=== PATIENT | female | born 1985 | race Caucasian/White ===

== ENCOUNTER 2016-08-22 21:35 | Emergency (ER) | payer OTHER ==
[2016-08-22 21:42] VITALS: BMI 26.4
--- NOTE | 2016-08-22 21:51 | PDOC ---
History of Present Illness - General History Source: Patient Exam Limitations: No Limitations - History of Present Illness Initial Comments: 08/23/16 00:32 The patient is a 30-year-old female with a significant past medical history of asthma, and presents to the emergency department with shortness of breath for an hour. The patient states she has back pain secondary to the strain from the difficult breathing. She also reports generalized weakness secondary to the increased work of breathing. She states that she had an episode of pneumonia last month. She expresses her concern that her shortness of breath may be related to that pneumonic episode. The patient denies chest pain, palpitations, headache and dizziness. The patient denies fever, chills, abdominal pain, nausea, vomit, diarrhea and constipation. She denies dysuria, urgency, frequency, and hematuria. Allergies: NKDA Other past medical history: personality disorder, mood disorder, anxiety, depression Social History: Current smoker <Aundrea Coles - Last Filed: 08/23/16 00:32> <Kailyn Bailey - Last Filed: 08/23/16 02:41> - General Chief Complaint: Asthma Stated Complaint: DIFFICULTY BREATHING Time Seen by Provider: 08/22/16 21:51 Past History <Aundrea Coles - Last Filed: 08/23/16 00:32> - Past Medical History Asthma: Yes Cancer: No Cardiac Disorders: No Diabetes: No HTN: No Psychiatric Problems: Yes (DEPRESSION & ANXIETY, Borderline personality disorder , mood disorder) Suicide Attempt (Hx): No Seizures: No Thyroid Disease: No - Immunization History Immunization Up to Date: Yes - Psycho/Social/Smoking Cessation Hx Anxiety: Yes (PRN MEDS) Suicidal Ideation: No Smoking Status: No Smoking History: Current some day smoker Have you smoked in the past 12 months: Yes Number of Cigarettes Smoked Daily: 20 Information on smoking cessation initiated: No 'Breaking Loose' booklet given: 05/31/15 Hx Alcohol Use: No Drug/Substance Use Hx: No Substance Use Type: None Hx Substance Use Treatment: No <Kailyn Bailey - Last Filed: 08/23/16 02:41> - Past Medical History Allergies/Adverse Reactions: Allergies Allergy/AdvReac Type Severity Reaction Status Date / Time No Known Allergies Allergy Verified 08/22/16 21:40 Home Medications: Ambulatory Orders Albuterol Sulfate Inhaler - [Ventolin Hfa Inhaler -] 1 - 2 inh PO Q4H 08/22/16 Montelukast Na [Singulair -] 10 mg PO HS #30 tablet 08/22/16 Prednisone [Deltasone -] 40 mg PO DAILY #8 tablet 08/23/16 Review of Systems - Review of Systems Able to Perform ROS?: Yes Comments:: 08/23/16 00:33 CONSTITUTIONAL: Absent: fever, chills, diaphoresis, generalized weakness, malaise, loss of appetite HEENT: Absent: rhinorrhea, nasal congestion, throat pain, throat swelling, difficulty swallowing, mouth swelling, ear pain, eye pain, visual Changes CARDIOVASCULAR: Absent: chest pain, syncope, palpitations, irregular heart rate, lightheadedness , peripheral edema RESPIRATORY: Present: (+) shortness of breath Absent: cough, dyspnea with exertion, orthopnea, wheezing, stridor, hemoptysis GASTROINTESTINAL: Absent: abdominal pain, abdominal distension, nausea, vomiting, diarrhea, constipation, melena, hematochezia GENITOURINARY: Absent: dysuria, frequency, urgency, hesitancy, hematuria, flank pain, genital pain MUSCULOSKELETAL: Present: (+) back pain Absent: arthralgia, joint swelling SKIN: Absent: rash, itching, pallor HEMATOLOGIC/IMMUNOLOGIC: Absent: easy bleeding, easy bruising, lymphadenopathy, frequent infections ENDOCRINE: Absent: unexplained weight gain, unexplained weight loss, heat intolerance, cold intolerance NEUROLOGIC: Absent: headache, focal weakness or paresthesias, dizziness, unsteady gait, seizure, mental status changes, bladder or bowel incontinence PSYCHIATRIC: Absent: anxiety, depression, suicidal or homicidal ideation, hallucinations. <Aundrea Coles - Last Filed: 08/23/16 00:32> *Physical Exam - Vital Signs Last Vital Signs Temp Pulse Resp BP Pulse Ox 99 H 22 140/90 100 08/22/16 23:55 08/22/16 23:55 08/22/16 21:36 08/22/16 23:55 - Physical Exam Comments: 08/23/16 00:33 GENERAL: Well developed, well nourished. Awake and alert. No acute distress. HEENT: Normocephalic, atraumatic. PERRLA, EOMI. No conjunctival pallor. Sclera are non- icteric. Moist mucous membranes. Oropharynx is clear. NECK: Supple. Full ROM. No JVD. Carotid pulses 2+ and symmetric, without bruits. No thyromegaly. No lymphadenopathy. CARDIOVASCULAR: Regular rate and rhythm. No murmurs, rubs, or gallops. Distal pulses are 2+ and symmetric. PULMONARY: No evidence of respiratory distress. Lungs clear to auscultation bilaterally. No wheezing, rales or rhonchi. ABDOMINAL: Soft. Non-tender. Non-distended. No rebound or guarding. No organomegaly. Normoactive bowel sounds. MUSCULOSKELETAL Normal range of motion at all joints. No bony deformities or tenderness. No CVA tenderness. EXTREMITIES: No cyanosis. No clubbing. No pitting edema. No calf tenderness. SKIN: Warm and dry. Normal capillary refill. No rashes. No jaundice. NEUROLOGICAL: Alert, awake, appropriate. Cranial nerves 2-12 intact. No deficits to light touch and temperature in face, upper extremities and lower extremities. No motor deficits in the in face, upper extremities and lower extremities. Normoreflexic in the upper and lower extremities. Normal speech. Toes are down- going bilaterally. Gait is normal without ataxia. PSYCHIATRIC: Cooperative. Good eye contact. Appropriate mood and affect. <Aundrea Coles - Last Filed: 08/23/16 00:32> - Vital Signs Last Vital Signs Temp Pulse Resp BP Pulse Ox 126 H 30 H 140/90 98 08/22/16 21:36 08/22/16 21:36 08/22/16 21:36 08/22/16 21:36 <Kailyn Bailey - Last Filed: 08/23/16 02:41> ED Treatment Course - LABORATORY CBC & Chemistry Diagram: 08/22/16 22:00 08/22/16 22:00 - ADDITIONAL ORDERS Additional order review: Laboratory Results 08/22/16 08/22/16 22:00 22:00 Sodium 143 Potassium 4.3 Chloride 110 H Carbon Dioxide 25 Anion Gap 8 BUN 6 L D Creatinine 0.6 Creat Clearance w eGFR > 60 Random Glucose 88 Calcium 8.0 L Total Bilirubin 0.3 D AST 15 D ALT 16 Alkaline Phosphatase 87 Total Protein 6.8 Albumin 3.5 Serum , Qual Negative 08/22/16 22:00 RBC 4.83 MCV 83.3 MCHC 31.4 L RDW 13.9 MPV 7.5 Neutrophils % 22.0 L D Lymphocytes % 55.0 H Monocytes % 6.0 Eosinophils % 13.0 H D Basophils % 1.0 - Medications Given in the ED: ED Medications Discontinued Medications Generic Name Dose Route Start Last Admin Trade Name Natalya PRN Reason Stop Dose Admin Acetaminophen 1,000 mg 08/22/16 22:20 08/22/16 22:22 Ofirmev Injection - IVPB 08/22/16 22:21 1,000 mg ONCE ONE Administration Albuterol/Ipratropium 1 amp 08/22/16 22:19 08/22/16 22:37 Duoneb - NEB 08/22/16 22:20 1 amp ONCE ONE Administration Magnesium Sulfate 2 gm 08/22/16 22:19 08/22/16 22:22 Magnesium Sulfate IVPB 08/22/16 22:20 2 gm ONCE ONE Administration Methylprednisolone Sodium Succinate 125 mg 08/22/16 22:19 08/22/16 22:22 Solu-Medrol - IVPB 08/22/16 22:20 125 mg ONCE ONE Administration Montelukast Sodium 10 mg 08/22/16 22:56 08/22/16 23:03 Singulair - PO 08/22/16 22:57 10 mg ONCE ONE Administration Sodium Chloride 500 ml 08/22/16 22:20 08/22/16 22:22 Normal Saline - IV 08/22/16 22:21 500 ml ONCE ONE Administration <Aundrea Coles - Last Filed: 08/23/16 00:32> - LABORATORY CBC & Chemistry Diagram: 08/22/16 22:00 08/22/16 22:00 <Kailyn Bailey - Last Filed: 08/23/16 02:41> Medical Decision Making - Medical Decision Making 08/23/16 02:40 Pt comes with asthma exacerbation. CXR clear; improved with meds and temporized with BiPAP. Pt is vastly improved. ready to go home. She lives with a dog that she is allergic to. Eosinophil count is super elevated. I will send her home with singulair. <Kailyn Bailey - Last Filed: 08/23/16 02:41> *DC/Admit/Observation/Transfer - Attestations Scribe Attestion: 08/23/16 00:33 Documentation prepared by Aundrea Coles, acting as biomedical equipment technician for Kailyn Bailey MD. <Aundrea Coles - Last Filed: 08/23/16 00:32> - Discharge Dispostion Admit: No <Kailyn Bailey - Last Filed: 08/23/16 02:41> Diagnosis at time of Disposition: Asthma exacerbation - Discharge Dispostion Disposition: HOME Condition at time of disposition: Improved - Prescriptions Prescriptions: Prednisone [Deltasone -] 40 mg PO DAILY #8 tablet Montelukast Na [Singulair -] 10 mg PO HS #30 tablet - Referrals Referrals: Cachorro Brower MD [Primary Care Provider] - - Patient Instructions Printed Discharge Instructions: Asthma -- Adult
[2016-08-22] MEDS ORDERED: ALBUTEROL SO4 2.5/IPRATROPIUM 0.5 INH SOL 3 ML VIAL.NEB. NEB ONE ×2 (21:53→22:19)
[2016-08-22] MEDS ORDERED: MAGNESIUM SULF 50% (8.12 MEQ/2 ML-1 GM VIAL) ONE (22:10)
[2016-08-22] MEDS ORDERED: methylPREDNISolone NA SUCC 125 MG/2 ML VIAL ONE (22:11)
[2016-08-22 22:14] LABS: MCH 26.2 pg (25.7-33.7); MCHC 31.4 g/dl (32.0-36.0); MEAN CELL VOLUME 83.3 fl (80-96); MEAN PLT VOLUME 7.5 fl (7.5-11.1); PLATELET COUNT 347 K/MM3 (134-434); RDW 13.9 % (11.6-15.6); WHITE BLOOD COUNT 7.5 K/mm3 (4.0-10.0)
[2016-08-22] MEDS ORDERED: MAGNESIUM SULF 50% (8.12 MEQ/2 ML-1 GM VIAL) IVPB ONE (22:19)
[2016-08-22] MEDS ORDERED: methylPREDNISolone NA SUCC 125 MG/2 ML VIAL IVPB ONE (22:19)
[2016-08-22] MEDS ORDERED: ACETAMINOPHEN 1000 MG/100 ML VIAL (NON FORMULARY) IVPB ONE (22:20)
[2016-08-22] MEDS ORDERED: SODIUM CHLORIDE 0.9% 500 ML INFUS.BAG IV ONE (22:20)
[2016-08-22 22:37] LABS: ALBUMIN 3.5 g/dl (3.4-5.0); ANION GAP 8 (8-16); BILIRUBIN,TOTAL 0.3 mg/dL (0.2-1.0); CO2 25 mmol/L (21-32); CREATININE 0.6 mg/dL (0.55-1.02); GLUCOSE,RANDOM 88 mg/dL (74-106); SGOT/AST 15 U/L (15-37); SGPT/ALT 16 U/L (12-78); TOT PROT 6.8 g/dl (6.4-8.2)
[2016-08-22 22:38] LABS: ALK PHOS 87 U/L (45-117)
[2016-08-22 22:54] LABS: PLATELET ESTIMATE ADEQUATE (NORMAL)
[2016-08-22] MEDS ORDERED: MONTELUKAST NA 5 MG TAB.CHEW PO ONE (22:56)
[2016-08-22] MEDS ORDERED: MONTELUKAST NA 10 MG TABLET ONE (22:58)
[2016-08-23 00:48] VITALS: BP 120/67; PULSE 91
== END 2016-08-23 00:48 | disposition home or self-care (01) ==
LOC: JER 21:35
PROC: 3E033NZ Introduction of Analgesics, Hypnotics, Sedatives into Peripheral Vein, Percutaneous Approach (ICD-10-PCS; principal; 2016-08-22)
PROC: 3E033GC Introduction of Other Therapeutic Substance into Peripheral Vein, Percutaneous Approach (ICD-10-PCS; 2016-08-22)
PROC: 3E0333Z Introduction of Anti-inflammatory into Peripheral Vein, Percutaneous Approach (ICD-10-PCS; 2016-08-22)
PROC: 3E0F7GC Introduction of Other Therapeutic Substance into Respiratory Tract, Via Natural or Artificial Opening (ICD-10-PCS; 2016-08-22)
DX: J45.901 Unspecified asthma with (acute) exacerbation (principal)
CPT/HCPCS: 36415; 71010-TC; 80053; 84703; 85025; 94640; 96374; 96375; 99283-25

== ENCOUNTER 2016-10-05 19:46 | Observation (INO) | payer OTHER ==
[2016-10-05] MEDS ORDERED: ALBUTEROL SO4 2.5/IPRATROPIUM 0.5 INH SOL 3 ML VIAL.NEB. NEB ONE ×3 (19:48→21:19)
[2016-10-05] MEDS ORDERED: MAGNESIUM SULF 50% (8.12 MEQ/2 ML-1 GM VIAL) IVPB ONE ×2 (19:48→20:11)
[2016-10-05] MEDS ORDERED: methylPREDNISolone NA SUCC 125 MG/2 ML VIAL IVPB ONE (19:48)
[2016-10-05 19:52] VITALS: BMI 39.9
[2016-10-05] MEDS ORDERED: methylPREDNISolone NA SUCC 125 MG/2 ML VIAL ONE (20:12)
[2016-10-05] MEDS ORDERED: MAGNESIUM SULF 50% (8.12 MEQ/2 ML-1 GM VIAL) ONE (20:12)
--- NOTE | 2016-10-05 20:13 | PDOC ---
History of Present Illness - General History Source: Patient Exam Limitations: No Limitations - History of Present Illness Initial Comments: 10/05/16 21:13 The patient is a 31 year old female, with a significant past medical history of asthma, bronchitis, depression, anxiety, borderline personality disorder, and mood disorder, who presents to the emergency department complaining of severe shortness of breath since earlier this evening. The patient reports a tooth extraction 1 day ago, but states she has been been experiencing a cough and nasal congestion for 2 days. The patient reports associated dyspnea on exertion and cough. She currently reports generalized weakness and difficulty ambulating , secondary to increased effort for breathing. The patient denies any associated chest pain, diaphoresis, or palpitations. The patient denies any fever, chills, headache, or dizziness. The patient denies any abdominal pain, nausea, vomiting, diarrhea, or constipation. Allergies: None reported. Past Surgical History: None reported. Social History: Former smoker. Denies alcohol or drug use. PCP: Dr. Iniguez <Anaid Jain - Last Filed: 10/06/16 01:15> <Marlena Jenkins - Last Filed: 10/06/16 03:12> - General Chief Complaint: Asthma Stated Complaint: ASTHMA Time Seen by Provider: 10/05/16 19:48 Past History <Anaid Jain - Last Filed: 10/06/16 01:15> - Past Medical History Asthma: Yes Cancer: No Cardiac Disorders: No Diabetes: No HTN: No Psychiatric Problems: Yes (DEPRESSION & ANXIETY, Borderline personality disorder , mood disorder) Suicide Attempt (Hx): No Seizures: No Thyroid Disease: No - Immunization History Immunization Up to Date: Yes - Psycho/Social/Smoking Cessation Hx Anxiety: Yes (PRN MEDS) Suicidal Ideation: No Smoking Status: No Smoking History: Former smoker Have you smoked in the past 12 months: Yes Number of Cigarettes Smoked Daily: 0 Information on smoking cessation initiated: No 'Breaking Loose' booklet given: 05/31/15 Hx Alcohol Use: No Drug/Substance Use Hx: No Substance Use Type: None Hx Substance Use Treatment: No <Marlena Jenkins - Last Filed: 10/06/16 03:12> - Past Medical History Allergies/Adverse Reactions: Allergies Allergy/AdvReac Type Severity Reaction Status Date / Time No Known Allergies Allergy Verified 10/05/16 19:52 Home Medications: Ambulatory Orders Albuterol Sulfate Inhaler - [Ventolin Hfa Inhaler -] 1 - 2 inh PO Q4H 08/22/16 Montelukast Na [Singulair -] 10 mg PO HS #30 tablet 08/22/16 Prednisone [Deltasone -] 40 mg PO DAILY #8 tablet 08/23/16 Respiratory Specific PMHX - Complaint Specific PMHX Bronchitis: Yes <Marlena Jenkins - Last Filed: 10/06/16 03:12> Review of Systems - Review of Systems Able to Perform ROS?: Yes Comments:: 10/05/16 21:14 CONSTITUTIONAL: Present: +weakness Absent: fever, no chills EYES: Absent: visual changes ENT: Present: +nasal congestion Absent: ear pain, no sore throat CARDIOVASCULAR: Absent: chest pain, no palpitations RESPIRATORY: Presen: +cough, +shortness of breath, +dyspnea with exertion Absent: orthopnea, wheezing, stridor, hemoptysis GI: Absent: abdominal pain, no nausea, no vomiting, no constipation, no diarrhea GENITOURINARY: Absent: dysuria, no frequency, no hematuria MUSKULOSKELETAL: Absent: back pain, no arthralgia, no myalgia SKIN: Absent: rash NEURO: Absent: headache <Anaid Jain - Last Filed: 10/06/16 01:15> *Physical Exam - Vital Signs Last Vital Signs Temp Pulse Resp BP Pulse Ox 98.1 F 138 H 24 148/79 96 10/05/16 19:48 10/05/16 19:48 10/05/16 19:48 10/05/16 19:48 10/05/16 19:48 - Physical Exam Comments: 10/05/16 21:15 GENERAL: Well-appearing, well-nourished. No apparent distress. HEENT: Normocephalic, atraumatic. PERRL, EOM intact. CARDIOVASCULAR: Normal S1, S2. Regular rate and rhythm. PULMONARY: Acute respiratory distress. Coarse bilateral wheezing, but no rales or rhonchi. ABDOMEN: Soft, non-distended, non-tender. EXTREMITIES: Normal ROM in all four extremities. No gross deformities. SKIN: Warm, dry. No rash NEUROLOGICAL: No focal neurological deficits. <Anaid Jain - Last Filed: 10/06/16 01:15> - Vital Signs Last Vital Signs Temp Pulse Resp BP Pulse Ox 98.1 F 138 H 24 148/79 96 10/05/16 19:48 10/05/16 19:48 10/05/16 19:48 10/05/16 19:48 10/05/16 19:48 <Marlena Jenkinsh - Last Filed: 10/06/16 03:12> Heart Score/ECG Review - ECG Impressions Comment:: 10/06/16 01:13 Vent. Marlen: 115 bpm IMPRESSION: Sinus tachycardia. <Anaid Jain - Last Filed: 10/06/16 01:15> ED Treatment Course - LABORATORY CBC & Chemistry Diagram: 10/05/16 20:10 10/05/16 20:10 - ADDITIONAL ORDERS Additional order review: Laboratory Results 10/05/16 10/05/16 20:10 20:10 Sodium 143 Potassium 4.3 Chloride 108 H Carbon Dioxide 27 Anion Gap 8 BUN 9 D Creatinine 0.9 D Creat Clearance w eGFR > 60 Random Glucose 102 Calcium 8.3 L Total Bilirubin 0.3 AST 14 L ALT 19 Alkaline Phosphatase 86 Total Protein 6.7 Albumin 3.5 Serum , Qual Negative - RADIOLOGY Radiograph Interpretation: 10/05/16 21:19 EXAM: CXR INTERPRETED BY: Dr. Land REVIEWED BY: Dr. Jenkins IMPRESSION: No significant interval change or acute lung disease present. - Medications Given in the ED: ED Medications Discontinued Medications Generic Name Dose Route Start Last Admin Trade Name Freq PRN Reason Stop Dose Admin Albuterol/Ipratropium 1 amp 10/05/16 19:48 10/05/16 20:23 Duoneb - NEB 10/05/16 19:49 1 amp ONCE ONE Administration Magnesium Sulfate 1 gm 10/05/16 19:48 10/05/16 20:24 Magnesium Sulfate IVPB 10/05/16 19:49 Not Given ONCE ONE Magnesium Sulfate 2 gm 10/05/16 20:11 10/05/16 20:24 Magnesium Sulfate IVPB 10/05/16 20:12 2 gm ONCE ONE Administration Methylprednisolone Sodium Succinate 125 mg 10/05/16 19:48 10/05/16 20:23 Solu-Medrol - IVPB 10/05/16 19:49 125 mg ONCE ONE Administration Terbutaline Sulfate 0.25 mg 10/05/16 20:53 10/05/16 21:05 Brethine Injection - SQ 10/05/16 20:54 0.25 mg ONCE ONE Administration <Anaid Jain - Last Filed: 10/06/16 01:15> - LABORATORY CBC & Chemistry Diagram: 10/05/16 20:10 10/05/16 20:10 <Marlena Jenkins - Last Filed: 10/06/16 03:12> Medical Decision Making - Critical Care Time Total Critical Care Time (minutes): 60 Critical Care Statement: The care of this patient involved high complexity decision making to prevent further life threatening deterioration of the patient 's condition and/or to evalute & treat vital organ system(s) failure or risk of failure. <Anaid Jain - Last Filed: 10/06/16 01:15> - Medical Decision Making 10/06/16 00:20 31 yo female p/w severe dyspnea,silent chest ,using accesory muscles . afebrile pmh asthma, no prior intubations pt required steroids.magnesium,terbuterline.multiple resp treaments ,BIPAP cxr no infiltrates cbc and comp wnl d dimer <200 10/06/16 00:23 ABG revealed high Fio2 and will decrease Fio2 10/06/16 02:49 pt reassessment _ greatly improved pt is now off BIPAP and requires only nasal cannula -will downgrade to med/surg <Marlena Jenkins - Last Filed: 10/06/16 03:12> *DC/Admit/Observation/Transfer - Attestations Scribe Attestion: 10/05/16 21:17 Documentation prepared by Anaid Jain, acting as medical office representative for Marlena Jenkins MD. <Anaid Jain - Last Filed: 10/06/16 01:15> - Discharge Dispostion Admit: Yes <Marlena Jenkins - Last Filed: 10/06/16 03:12> Diagnosis at time of Disposition: Asthma exacerbation - Referrals
[2016-10-05 20:16] LABS: BASOPHIL 1.4 % (0-2.0); EOSINOPHIL 9.3 % (0-4.5); MCH 26.9 pg (25.7-33.7); MCHC 32.4 g/dl (32.0-36.0); MEAN PLT VOLUME 7.6 fl (7.5-11.1); NEUTROPHILS 24.3 % (42.8-82.8); PLATELET COUNT 257 K/MM3 (134-434); RDW 14.3 % (11.6-15.6); WHITE BLOOD COUNT 7.2 K/mm3 (4.0-10.0)
[2016-10-05 20:40] LABS: ALBUMIN 3.5 g/dl (3.4-5.0); ALK PHOS 86 U/L (45-117); ANION GAP 8 (8-16); BILIRUBIN,TOTAL 0.3 mg/dL (0.2-1.0); CALCIUM 8.3 mg/dL (8.5-10.1); CO2 27 mmol/L (21-32); CREATININE 0.9 mg/dL (0.55-1.02); GLUCOSE,RANDOM 102 mg/dL (74-106); SGOT/AST 14 U/L (15-37); SGPT/ALT 19 U/L (12-78); TOT PROT 6.7 g/dl (6.4-8.2)
[2016-10-05] MEDS ORDERED: ENOXAPARIN NA (PORCINE) 120 MG/0.8 ML DISP.SYRIN SQ SCH (20:45)
[2016-10-05] MEDS ORDERED: ENOXAPARIN NA (PORCINE) 120 MG/0.8 ML DISP.SYRIN SQ ONE (20:45)
[2016-10-05] MEDS ORDERED: TERBUTALINE SULFATE 1 MG/1 ML VIAL SQ ONE ×4 (20:53→21:49)
[2016-10-05] MEDS ORDERED: ACETAMINOPHEN INJECTION 100 ML IVPB ONE (21:39)
[2016-10-05] MEDS ORDERED: ACETAMINOPHEN 1000 MG/100 ML VIAL (NON FORMULARY) IVPB ONE (21:47)
[2016-10-05] MEDS ORDERED: CEFTRIAXONE 1 GM in DEXTROSE 5%-WATER - 50 ML IVPB ONE (23:18)
[2016-10-05 23:37] LABS: ARTERIAL BLD GAS O2 SATURATION 99.9 % (90-98.9); ARTERIAL BLOOD GAS BASE EXCESS -3.2 meq/l (-2-2); ARTERIAL BLOOD GAS HCO3 21.1 meq/L (22-26); ARTERIAL BLOOD GAS pH 7.37 (7.35-7.45)
[2016-10-05 23:38] LABS: ALLENS TEST POSITIVE; ART PUNCT SITE RIGHT RADIAL; LPM/O2% 100%; PT. ON O2? YES
[2016-10-05 23:39] LABS: MECH. VENT. BIPAP; TYPE OF O2 BIPAP; VENT RATE 12
[2016-10-06] MEDS ORDERED: CEFTRIAXONE 50 ML ONE (00:07)
[2016-10-06] MEDS ORDERED: ALBUTEROL SO4 0.083% IH SOL 2.5 MG/3 ML VIAL.NEB. NEB PRN (01:37)
--- NOTE | 2016-10-06 01:46 | HP ---
CHIEF COMPLAINT: shortness of breath. PCP:Dr. Iniguez HISTORY OF PRESENT ILLNESS: 31 yo F with significant pmhx of asthma, bronchitis, depression, anxiety, borderline personality disorder, and mood disorder, who presents to the emergency department complaining of severe shortness of breath since earlier this today.She reports that she is rcovering from viral illness a week ago and today she bacabem increaseing sob and her inhaler waws no helpin. She has been experiencing a cough and nasal congestion for 2 days. She initially reported generalized weakness and difficulty ambulating, secondary to increased effort for breathing. The patient denies any associated chest pain, diaphoresis, or palpitations. The patient denies any fever, chills, headache, or dizziness. The patient denies any abdominal pain, nausea, vomiting, diarrhea, or constipation. ER course was notable for: (1) Given steroids, magnesium,terbuterline.multiple resp treaments ,BIPAP- symptomes improved. (2) after treatments peak flow 300 which is 66% of expected = incomplete response (3)CXR- no acute pathology Recent Travel: Denies PAST MEDICAL HISTORY:asthma, bronchitis, depression, anxiety, borderline personality disorder, and mood disorder PAST SURGICAL HISTORY:none Social History: Smoking:former smoker quit 2 yrs ago Alcohol:Denies Drugs: denies Family History: Allergies No Known Allergies Allergy (Verified 10/05/16 19:52) HOME MEDICATIONS: Home Medications Medication Instructions Recorded Albuterol Sulfate Inhaler - 1 - 2 inh PO Q4H 08/22/16 [Ventolin Hfa Inhaler -] Montelukast Na [Singulair -] 10 mg PO HS #30 tablet 08/22/16 Prednisone [Deltasone -] 40 mg PO DAILY #8 tablet 08/23/16 REVIEW OF SYSTEMS CONSTITUTIONAL: Absent: fever, chills, diaphoresis, generalized weakness, malaise, loss of appetite, weight change HEENT: Absent: rhinorrhea, nasal congestion, throat pain, throat swelling, difficulty swallowing, mouth swelling, ear pain, eye pain, visual changes CARDIOVASCULAR: Absent: chest pain, syncope, palpitations, irregular heart rate, lightheadedness , peripheral edema RESPIRATORY: (+)cough, shortness of breath, dyspnea with exertion,wheezing Absent: , orthopnea, , stridor, hemoptysis GASTROINTESTINAL: Absent: abdominal pain, abdominal distension, nausea, vomiting, diarrhea, constipation, melena, hematochezia GENITOURINARY: Absent: dysuria, frequency, urgency, hesitancy, hematuria, flank pain, genital pain MUSCULOSKELETAL: Absent: myalgia, arthralgia, joint swelling, back pain, neck pain SKIN: Absent: rash, itching, pallor HEMATOLOGIC/IMMUNOLOGIC: Absent: easy bleeding, easy bruising, lymphadenopathy, frequent infections ENDOCRINE: Absent: unexplained weight gain, unexplained weight loss, heat intolerance, cold intolerance NEUROLOGIC: Absent: headache, focal weakness or paresthesias, dizziness, unsteady gait, seizure, mental status changes, bladder or bowel incontinence PSYCHIATRIC: (+) anxiety, depression, Absent: suicidal or homicidal ideation, hallucinations. PHYSICAL EXAMINATION Vital Signs - 24 hr 10/05/16 10/06/16 19:48 00:35 Temperature 98.1 F Pulse Rate 138 H Respiratory 24 Rate Blood Pressure 148/79 O2 Sat by Pulse 96 100 Oximetry (%) GENERAL: Awake, alert, and fully oriented, in mild distress. HEAD: Normal with no signs of trauma. EYES: Pupils equal, round and reactive to light, extraocular movements intact, sclera anicteric, conjunctiva clear. EARS, NOSE, THROAT: Ears normal, nares patent, oropharynx clear without exudates.dry mucous membranes. NECK: Normal range of motion, supple without lymphadenopathy, JVD, or masses. LUNGS: Diminished breath sounds bilat. Diffuse wheezing .no crackles. No accessory muscle use. HEART: tahcycardic, normal S1 and S2 without murmur, rub or gallop. ABDOMEN: Soft, obese, nontender, not distended, normoactive bowel sounds, no guarding, no rebound, no masses. No hepatomegaly or splenomegaly. MUSCULOSKELETAL: Normal range of motion at all joints. No bony deformities or tenderness. No CVA tenderness. UPPER EXTREMITIES: 2+ pulses, warm, well-perfused. No cyanosis. No clubbing. . No peripheral edema. LOWER EXTREMITIES: 2+ pulses, warm, well-perfused. No calf tenderness. No peripheral edema. NEUROLOGICAL: Cranial nerves II-XII intact. Normal speech. gait not observed. PSYCHIATRIC: Cooperative. Good eye contact. Appropriate mood and affect. SKIN: Warm, dry, normal turgor, no rashes or lesions noted. Laboratory Results - last 24 hr 10/05/16 10/05/1610/05/17 20:10 20:10 20:10 WBC 7.2 RBC 4.77 Hgb 12.8 Hct 39.6 MCV 83.0 MCHC 32.4 RDW 14.3 Plt Count 257 D MPV 7.6 Neutrophils % 24.3 L Lymphocytes % 56.7 H Monocytes % 8.3 Eosinophils % 9.3 H Basophils % 1.4 Puncture Site ABG pH ABG pCO2 at Pt Temp ABG pO2 at Pt Temp ABG HCO3 ABG O2 Sat (Measured) ABG O2 Content ABG Base Excess Sameer Test O2 Delivery Device Oxygen Flow Rate Vent Mode Vent Rate Mechanical Rate Pressure Support Vent Sodium 143 Potassium 4.3 Chloride 108 H Carbon Dioxide 27 Anion Gap 8 BUN 9 D Creatinine 0.9 D Creat Clearance w eGFR > 60 Random Glucose 102 Calcium 8.3 L Total Bilirubin 0.3 AST 14 L ALT 19 Alkaline Phosphatase 86 Total Protein 6.7 Albumin 3.5 Serum , Qual Negative 10/05/16 23:25 WBC RBC Hgb Hct MCV MCHC RDW Plt Count MPV Neutrophils % Lymphocytes % Monocytes % Eosinophils % Basophils % Puncture Site Right radial ABG pH 7.37 ABG pCO2 at Pt Temp 37.4 ABG pO2 at Pt Temp 564.0 H* ABG HCO3 21.1 L ABG O2 Sat (Measured) 99.9 H* ABG O2 Content 18.8 ABG Base Excess -3.2 L Sameer Test Positive O2 Delivery Device Bipap Oxygen Flow Rate 100% Vent Mode S/t Vent Rate 12 Mechanical Rate Bipap Pressure Support Vent 12/5 Sodium Potassium Chloride Carbon Dioxide Anion Gap BUN Creatinine Creat Clearance w eGFR Random Glucose Calcium Total Bilirubin AST ALT Alkaline Phosphatase Total Protein Albumin Serum , Qual ASSESSMENT/PLAN: Problem List - Problem (1) Asthma exacerbation Assessment/Plan: * Albuterol Sulfate (Ventolin 0.083% Nebulizer Soln -) 1 amp NEB Q1H * Albuterol/Ipratropium (Duoneb -) 1 amp NEB QIDR * Budesonide/Formoterol Fumarate (Symbicort 160/4.5mcg -) 1 puff IH BID * Methylprednisolone Sodium Succinate (Solu-Medrol -) 40 mg IVPB Q6H-IV * Pantoprazole Sodium (Protonix -) 40 mg PO DAILY (2) DVT prophylaxis Assessment/Plan: * Lovenox 40mg SQ daily Visit type - Emergency Visit Emergency Visit: Yes Care time: The patient presented to the Emergency Department on the above date and was hospitalized for further evaluation of their emergent condition. - New Patient This patient is new to me today: Yes Date on this admission: 10/06/16 - Critical Care Critical Care patient: No
--- NOTE | 2016-10-06 01:53 | PN ---
<Gene Michel - Last Filed: 10/06/16 01:54> Teaching Attending Note ATTENDING PHYSICIAN STATEMENT I saw and evaluated the patient. I reviewed the resident's note and discussed the case with the resident. I agree with the resident's findings and plan as documented. SUBJECTIVE: The patient is a 31 year old female, with a significant past medical history of asthma, bronchitis, depression, anxiety, borderline personality disorder, and mood disorder, who presented to the emergency department complaining of severe shortness of breath since later yesterday. The patient reported associated dyspnea on exertion and cough. She reported generalized weakness and difficulty ambulating, secondary to increased effort for breathing. The patient noted using her albuterol over 15 times daily including morning and night time awakenings. Patient was on symbicort but took herself off due to thrush OBJECTIVE: Vital Signs: Last Vital Signs Temp Pulse Resp BP Pulse Ox 98.1 F 138 H 24 148/79 100 10/05/16 19:48 10/05/16 19:48 10/05/16 19:48 10/05/16 19:48 10/06/16 00:35 Physical Exam: GEN: (+) A&O x3 stable to speak full sentences not using accessory muscle for expiration HEENT: NCAT, PERRL CARD: RRR, S1 S2 RESP: (+) Bilateral course expiratory wheezing ABD: NT, BWS x4 EXT: - CCE Labs: CBCD WBC 7.2 K/mm3 (4.0-10.0) 10/05/16 20:10 RBC 4.77 M/mm3 (3.60-5.2) 10/05/16 20:10 Hgb 12.8 GM/dL (10.7-15.3) 10/05/16 20:10 Hct 39.6 % (32.4-45.2) 10/05/16 20:10 MCV 83.0 fl (80-96) 10/05/16 20:10 MCHC 32.4 g/dl (32.0-36.0) 10/05/16 20:10 RDW 14.3 % (11.6-15.6) 10/05/16 20:10 Plt Count 257 K/MM3 (134-434) D 10/05/16 20:10 MPV 7.6 fl (7.5-11.1) 10/05/16 20:10 CMP Sodium 143 mmol/L (136-145) 10/05/16 20:10 Potassium 4.3 mmol/L (3.5-5.1) 10/05/16 20:10 Chloride 108 mmol/L (98-107) H 10/05/16 20:10 Carbon Dioxide 27 mmol/L (21-32) 10/05/16 20:10 Anion Gap 8 (8-16) 10/05/16 20:10 BUN 9 mg/dL (7-18) D 10/05/16 20:10 Creatinine 0.9 mg/dL (0.55-1.02) D 10/05/16 20:10 Creat Clearance w eGFR > 60 (>60) 10/05/16 20:10 Calcium 8.3 mg/dL (8.5-10.1) L 10/05/16 20:10 Total Bilirubin 0.3 mg/dL (0.2-1.0) 10/05/16 20:10 AST 14 U/L (15-37) L 10/05/16 20:10 ALT 19 U/L (12-78) 10/05/16 20:10 Alkaline Phosphatase 86 U/L (45-117) 10/05/16 20:10 Total Protein 6.7 g/dl (6.4-8.2) 10/05/16 20:10 Albumin 3.5 g/dl (3.4-5.0) 10/05/16 20:10 Imaging: CXR Impression: No significant interval change or acute lung disease is present Interpreted and reviewed by radiologist Dr. Gus Land ASSESSMENT AND PLAN: The patient is a 31 year old female, with a significant past medical history of asthma (never intubated), bronchitis who presented with asthma exacerbation, being admitted for acute exacerbation of asthma 1. Asthma exacerbation -Continue short acting breathlydialators -Prednisone 60 mg in AM -Repeat peak flow -Continue O2 -Consider outpatient pulmonary for asthma management -S/p magnesium and terbutaline in ED -Duonebs Q4H PRN -Albuterol Q1H -Will start inhaled corticosteroid before discharge 2. Dyspnea- most likely related to asthma exacerbation less likely PE wells score 1.5. 3. DVT PPX -Heparin 5000 units Q8H Admit to tele. Documentation prepared by Gene Michel, acting as medical insurance claims processor for Dr. Sushil Palma MD. <Sushil Palma - Last Filed: 10/06/16 06:05> Teaching Attending Note Name of Resident: Judd Tanner Addendum: - C/W FLAVIA
[2016-10-06 02:02] LABS: URINE APPEARANCE CLEAR; URINE BILIRUBIN NEGATIVE (NEGATIVE); URINE BLOOD NEGATIVE (NEGATIVE); URINE COLOR LTYELLOW; URINE GLUCOSE (UA) NEGATIVE (NEGATIVE); URINE KETONE NEGATIVE (NEGATIVE); URINE LEUK ESTERASE NEGATIVE (NEGATIVE); URINE NITRITE NEGATIVE (NEGATIVE); URINE PROTEIN NEGATIVE (NEGATIVE); URINE UROBILINOGEN NEGATIVE E.U./dl (0.2-1.0)
[2016-10-06] MEDS: methylPREDNISolone NA SUCC 40 MG/1 ML VIAL IVPB SCH ×2 (03:30→09:18)
[2016-10-06] MEDS ORDERED: ALBUTEROL SO4 2.5/IPRATROPIUM 0.5 INH SOL 3 ML VIAL.NEB. NEB SCH (06:00)
[2016-10-06] MEDS ORDERED: ALBUTEROL SO4 2.5/IPRATROPIUM 0.5 INH SOL 3 ML VIAL.NEB. NEB ONE (06:04)
[2016-10-06 07:28] LABS: BASOPHIL 0.1 % (0-2.0); MCH 27.1 pg (25.7-33.7); MCHC 32.4 g/dl (32.0-36.0); MEAN CELL VOLUME 83.6 fl (80-96); NEUTROPHILS 91.7 % (42.8-82.8); PLATELET COUNT 225 K/MM3 (134-434); RDW 14.5 % (11.6-15.6); WHITE BLOOD COUNT 9.9 K/mm3 (4.0-10.0)
[2016-10-06 07:50] LABS: ALBUMIN 3.4 g/dl (3.4-5.0); ANION GAP 11 (8-16); CALCIUM 8.7 mg/dL (8.5-10.1); CO2 21 mmol/L (21-32); CREATININE 0.8 mg/dL (0.55-1.02); GLUCOSE,RANDOM 149 mg/dL (74-106); MAGNESIUM 2.2 mg/dL (1.8-2.4); PHOSPHOROUS 2.2 mg/dL (2.5-4.9); SGOT/AST 13 U/L (15-37); SGPT/ALT 14 U/L (12-78)
[2016-10-06 07:52] LABS: ALK PHOS 75 U/L (45-117); BILIRUBIN,TOTAL 0.4 mg/dL (0.2-1.0); TOT PROT 6.6 g/dl (6.4-8.2)
[2016-10-06] MEDS ORDERED: PANTOPRAZOLE 40 MG TABLET (FP) ONE (07:58)
[2016-10-06] MEDS ORDERED: methylPREDNISolone NA SUCC 40 MG/1 ML VIAL ONE (07:58)
[2016-10-06 08:06] VITALS: BP 108/62; PULSE 98; TEMP 98.2
[2016-10-06] MEDS ORDERED: BUDESONIDE/FORMETEROL FUMARATE 160/4.5 mcg INHALER IH SCH (10:00)
[2016-10-06] MEDS ORDERED: PANTOPRAZOLE 40 MG TABLET (FP) PO SCH (10:00)
--- NOTE | 2016-10-06 10:29 | HP ---
Admitting History and Physical - Primary Care Physician PCP: Cachorro Brower - Admission Chief Complaint: ACUTE ASTHMA History of Present Illness: SOB WITH WHEEZES FOR 2 DAYS NOT IMPROVING, GIVEN SOLUMEDROL AND NEBS HERE IN ED , KEPT FOR OBSERVATION STATUS History Source: Patient Limitations to Obtaining History: No Limitations - Past Medical History Pulmonary: Yes: Asthma - Smoking History Smoking history: Former smoker Have you smoked in the past 12 months: Yes Aproximately how many cigarettes per day: 0 - Alcohol/Substance Use Hx Alcohol Use: No Home Medications - Allergies Allergies/Adverse Reactions: Allergies Allergy/AdvReac Type Severity Reaction Status Date / Time No Known Allergies Allergy Verified 10/05/16 19:52 - Home Medications Home Medications: Ambulatory Orders Albuterol Sulfate Inhaler - [Ventolin Hfa Inhaler -] 1 - 2 inh PO Q4H 08/22/16 Review of Systems - Review of Systems Constitutional: reports: No Symptoms Eyes: reports: No Symptoms HENT: reports: No Symptoms Neck: reports: No Symptoms Cardiovascular: reports: Shortness of Breath Respiratory: reports: Cough, SOB, SOB on Exertion Genitourinary: reports: No Symptoms Musculoskeletal: reports: No Symptoms Integumentary: reports: No Symptoms Endocrine: reports: No Symptoms Hematology/Lymphatic: reports: No Symptoms Psychiatric: reports: No Symptoms Physical Examination Vital Signs: Vital Signs Temperature 98.2 F 10/06/16 08:05 Pulse Rate 98 H 10/06/16 08:05 Respiratory Rate 18 10/06/16 08:05 Blood Pressure 108/62 10/06/16 08:05 O2 Sat by Pulse Oximetry (%) 100 10/06/16 08:05 Constitutional: Yes: Mild Distress Eyes: Yes: WNL HENT: Yes: WNL Neck: Yes: WNL Cardiovascular: Yes: WNL Respiratory: Yes: Cough, Wheezes Gastrointestinal: Yes: WNL Renal/: Yes: WNL Musculoskeletal: Yes: WNL Extremities: Yes: WNL Edema: No Peripheral Pulses WNL: Yes Integumentary: Yes: WNL Wound/Incision: Yes: Clean/Dry Neurological: Yes: WNL ...Motor Strength: WNL Psychiatric: Yes: WNL Labs: CBC, BMP 10/06/16 06:55 10/06/16 06:55 Imaging - Results Chest X-ray: Report Reviewed Problem List - Problems (1) Asthma exacerbation Code(s): J45.901 - UNSPECIFIED ASTHMA WITH (ACUTE) EXACERBATION (2) Bronchitis Code(s): J40 - BRONCHITIS, NOT SPECIFIED ACUTE OR CHRONIC Assessment/Plan IV SOLUMEDROL NEBS 02 SUPPORT OBSERVATION STATUS
[2016-10-06] MEDS ORDERED: BUDESONIDE/FORMETEROL FUMARATE 80/4.5 mcg INHALER IH SCH (10:30)
[2016-10-06] MEDS ORDERED: predniSONE 10 MG TABLET (UD) PO SCH (10:30)
[2016-10-06] MEDS ORDERED: FLUCONAZOLE 50 MG TABLET PO ONE (10:31)
--- NOTE | 2016-10-06 10:34 | DS ---
Physical Examination Vital Signs: Vital Signs Temperature 98.2 F 10/06/16 08:05 Pulse Rate 98 H 10/06/16 08:05 Respiratory Rate 18 10/06/16 08:05 Blood Pressure 108/62 10/06/16 08:05 O2 Sat by Pulse Oximetry (%) 100 10/06/16 08:05 Constitutional: Yes: Mild Distress Eyes: Yes: WNL HENT: Yes: WNL Neck: Yes: WNL Cardiovascular: Yes: WNL Respiratory: Yes: WNL, CTA Bilaterally Gastrointestinal: Yes: WNL Renal/: Yes: WNL Breast(s): Yes: WNL Musculoskeletal: Yes: WNL Extremities: Yes: WNL Edema: No Peripheral Pulses WNL: Yes Integumentary: Yes: WNL Wound/Incision: Yes: Clean/Dry Neurological: Yes: WNL ...Motor Strength: WNL Psychiatric: Yes: WNL Labs: CBC, BMP 10/06/16 06:55 10/06/16 06:55 Discharge Summary Reason For Visit: ASTHMA EXACERBATION Current Active Problems Asthma exacerbation (Acute) DVT prophylaxis (Acute) Procedures: Principal: CXR Other Procedures: LABS Hospital Course: ADMITTED OBSERVATION STATUS, IV ABX, NEBS, WILL FOLLOW OUTPATIENT DC HOME 1- 2 WEEK F/U Condition: Improved - Instructions Diet, Activity, Other Instructions: REG Referrals: Cachorro Tineo MD [Primary Care Provider] - Disposition: HOME - Home Medications Comprehensive Discharge Medication List: Ambulatory Orders Albuterol Sulfate Inhaler - [Ventolin Hfa Inhaler -] 1 - 2 inh PO Q4H 08/22/[address] TINEO IN 1-2 WEEKS
[2016-10-06] MEDS ORDERED: LEVOFLOXACIN 750 MG TABLET PO SCH ×2 (10:45→12:59)
[2016-10-06] MEDS ORDERED: predniSONE 20 MG TABLET (UD) ONE (10:46)
[2016-10-06] MEDS ORDERED: FLUCONAZOLE 100 MG TABLET (UD) ONE (10:46)
[2016-10-06] MEDS ORDERED: LEVOFLOXACIN 500 MG TABLET (FP) ONE (10:47)
[2016-10-06] MEDS ORDERED: LEVOFLOXACIN 250 MG TABLET (FP) ONE (10:47)
--- NOTE | 2016-10-06 16:05 | EKG ---
Test Reason : Blood Pressure : / mmHG Vent. Rate : 115 BPM Atrial Rate : 115 BPM P-R Int : 134 ms QRS Dur : 076 ms QT Int : 356 ms P-R-T Axes : 076 045 046 degrees QTc Int : 492 ms SINUS TACHYCARDIA CANNOT RULE OUT ANTERIOR INFARCT , AGE UNDETERMINED ABNORMAL ECG NO PREVIOUS ECGS AVAILABLE Confirmed by ELLIS LORD MD ([id number]) on 10/06/2016 4:05:28 PM Referred By: Confirmed By:ELLIS LORD MD
[2016-10-06] MEDS ORDERED: MONTELUKAST NA 10 MG TABLET PO SCH (22:00)
== END 2016-10-06 11:20 | disposition home or self-care (01) ==
LOC: JER 19:46 → JERBED 10-06 00:42 → UNDOADMIN 10-06 00:42 → JERBED 10-06 01:01 → UNDOADMIN 10-06 01:01 → JERBED 10-06 03:12 → UNDOADMOB 10-06 03:12 → INTOOBSV 10-06 03:12
PROVIDERS: ADMIT Internal Medicine; ATTEND Family Medicine
DX: J45.901 Unspecified asthma with (acute) exacerbation (principal); F41.8 Other specified anxiety disorders; F60.89 Other specific personality disorders; F39 Unspecified mood [affective] disorder
CPT/HCPCS: 36415; 36600; 71010-TC; 80053; 81003; 82803; 83735; 84100; 84703; 85025; 85379; 93005; 93010; 99283-25; G0378

== ENCOUNTER 2017-09-20 20:46 | Emergency (ER) | payer OTHER ==
[2017-09-20] MEDS ORDERED: ALBUTEROL SO4 2.5/IPRATROPIUM 0.5 INH SOL 3 ML VIAL.NEB. NEB ONE ×2 (21:09→23:36)
--- NOTE | 2017-09-20 21:09 | PDOC ---
Rapid Medical Evaluation Time Seen by Provider: 09/20/17 21:06 Medical Evaluation: Allergies Allergy/AdvReac Type Severity Reaction Status Date / Time No Known Allergies Allergy Verified 10/05/16 19:52 09/20/17 21:06 32 year old female with history of asthma (prior hospitalizations, no intubations, uses albuterol prn/no daily meds), borderline personality disorder , anxiety/depression presenting with wheezing not relieved by albuterol nebs x 3 today. Wheezing started 2 days ago. Afebrile. Speaking full sentences, SpO2 97%. Diffuse expiratory wheezing with poor air entry bilaterally. -Pgu -DuoNeb -To Main ED for further evaluation Discharge Disposition - Referrals Referrals: Juan Diego Sibley [Primary Care Provider] - - Patient Instructions - Post Discharge Activity
[2017-09-20 21:10] VITALS: BP 125/66; PULSE 107; TEMP 97.8; BMI 40.8
[2017-09-20] MEDS ORDERED: predniSONE 20 MG TABLET (UD) PO ONE (23:14)
--- NOTE | 2017-09-20 23:16 | PDOC ---
History of Present Illness - General Chief Complaint: Asthma Stated Complaint: ASTHMA Time Seen by Provider: 09/20/17 21:06 History Source: Patient Exam Limitations: No Limitations - History of Present Illness Initial Comments: CHIEF COMPLAINT: 32 y/o afebrile female with PMH asthma c/o wheezing today. HISTORY OF PRESENT ILLNESS: The patient has used her inhaler and nebulizer at home with little relief. She denies f/c, n/v/d, CP, SOB, abd pain and all other symptoms. Vital signs on arrival are notable for pulse of 107. REVIEW OF SYSTEMS: GENERAL/CONSTITUTIONAL: No fever/chills. No weakness. No weight change. HEAD, EYES, EARS, NOSE AND THROAT: No change in vision. No ear pain or discharge. No sore throat. CARDIOVASCULAR: No chest pain or shortness of breath. RESPIRATORY: +cough and wheezing. No hemoptysis. GASTROINTESTINAL: No abd pain, nausea, vomiting, diarrhea. GENITOURINARY: No dysuria, frequency, or change in urination. MUSCULOSKELETAL: No joint or muscle swelling or pain. No neck or back pain. SKIN: No rash or easy bruising. NEUROLOGIC: No headache, vertigo, loss of consciousness, or loss of sensation. PHYSICAL EXAM: GENERAL: The patient is awake, alert, and fully oriented, in no acute distress. HEAD: Normal with no signs of trauma. ENT: Pupils equal, round and reactive to light, extraocular movements intact, sclera anicteric, conjunctiva clear. Neck supple. LUNGS: Faint expiratory wheezing in left posterior base. Normal excursion. No respiratory distress or use of accessory muscles. CV: RRR, S1/S2, no MRG. Cap refill < 2 sec. ABDOMEN: Soft, non-distended, non-tender even to deep palpation, no hepatomegaly or splenomegaly, no masses. EXTREMITIES: Normal range of motion, no edema. NEUROLOGICAL: Normal speech, normal gait. CN II-XII grossly intact. PSYCH: Normal mood, normal affect. SKIN: Warm, dry, normal turgor, no rashes or lesions noted. Past History - Past Medical History Allergies/Adverse Reactions: Allergies Allergy/AdvReac Type Severity Reaction Status Date / Time No Known Allergies Allergy Verified 09/20/17 21:08 Home Medications: Ambulatory Orders Albuterol 2.5/Ipratropium 0.5 [Duoneb -] 1 amp NEB QIDR #90 amp 10/06/16 Albuterol Sulfate Inhaler - [Ventolin HFA Inhaler -] 1 - 2 inh PO Q4H #2 inhaler 10/06/16 Budesonide/Formeterol Fumarate [SYMBICORT 80/4.5mcg -] 2 puff IH BID #2 inhaler 10/06/16 Levofloxacin [Levaquin] 750 mg PO DAILY #4 tab 10/06/16 Montelukast Na [Singulair -] 10 mg PO HS #39 tablet 10/06/16 Prednisone [Deltasone -] 30 mg PO DAILY #30 tablet 10/06/16 Prednisone [Deltasone -] 60 mg PO DAILY #12 tablet 09/20/17 Asthma: Yes Cancer: No Cardiac Disorders: No COPD: No Diabetes: No HTN: No Psychiatric Problems: Yes (DEPRESSION & ANXIETY, Borderline personality disorder , mood disorder) Seizures: No Thyroid Disease: No - Immunization History Immunization Up to Date: Yes - Suicide/Smoking/Psychosocial Hx Smoking Status: No Smoking History: Never smoked Have you smoked in the past 12 months: No Number of Cigarettes Smoked Daily: 0 Information on smoking cessation initiated: No 'Breaking Loose' booklet given: 05/31/15 Hx Alcohol Use: No Drug/Substance Use Hx: No Substance Use Type: None Hx Substance Use Treatment: No *Physical Exam - Vital Signs Last Vital Signs Temp Pulse Resp BP Pulse Ox 97.8 F 107 H 20 125/66 97 09/20/17 21:08 09/20/17 21:08 09/20/17 21:08 09/20/17 21:08 09/20/17 21:08 ED Treatment Course - Medications Given in the ED: ED Medications Discontinued Medications Generic Name Dose Route Start Last Admin Trade Name Freq PRN Reason Stop Dose Admin Albuterol/Ipratropium 1 amp 09/20/17 21:09 09/20/17 21:28 Duoneb - NEB 09/20/17 21:10 1 amp ONCE ONE Administration Medical Decision Making - Medical Decision Making A/p: 32 y/o female with wheezing today uncontrolled with maintenance med/ inhaler at home. Patient had 1 duoneb in triage and lungs have improved. Plan is as follows: 1. Duoneb x 2 2. PO prednisone. Patient's lung are now clear to ascultation and she feels better. Will discharge to home with rx for 4 day course of prednisone. instructed the patient to return to the ER with any worsening or concerning symptoms. The patient verbalizes understanding of all instructions, has no further questions and is awaiting discharge. *DC/Admit/Observation/Transfer Diagnosis at time of Disposition: Asthma exacerbation Qualifiers: Asthma severity: moderate Asthma persistence: unspecified Qualified Code(s): J45.901 - Unspecified asthma with (acute) exacerbation - Discharge Dispostion Disposition: HOME Condition at time of disposition: Improved - Prescriptions Prescriptions: Prednisone [Deltasone -] 60 mg PO DAILY #12 tablet - Referrals Referrals: Juan Diego Sibley [Primary Care Provider] - - Patient Instructions Printed Discharge Instructions: Asthma -- Adult Additional Instructions: Discharge instructions: -continue to use your inhaler and nebulizer if needed at home for symptoms -A prescription for a 4 day course of steroids has been sent to your pharmacy -Return to the ER with any worsening or concerning symptoms. - Post Discharge Activity
[2017-09-20] MEDS ORDERED: predniSONE 20 MG TABLET (UD) ONE (23:36)
[2017-09-20] MEDS: ALBUTEROL SO4 2.5/IPRATROPIUM 0.5 INH SOL 3 ML VIAL.NEB. NEB SCH ×2 (23:42→23:46)
[2017-09-21] MEDS ORDERED: ALBUTEROL SO4 2.5/IPRATROPIUM 0.5 INH SOL 3 ML VIAL.NEB. NEB ONE (00:07)
== END 2017-09-21 00:10 | disposition home or self-care (01) ==
LOC: JER 20:46
PROC: 3E0F7GC Introduction of Other Therapeutic Substance into Respiratory Tract, Via Natural or Artificial Opening (ICD-10-PCS; principal; 2017-09-20)
DX: J45.901 Unspecified asthma with (acute) exacerbation (principal); F39 Unspecified mood [affective] disorder; F60.89 Other specific personality disorders; F41.8 Other specified anxiety disorders
CPT/HCPCS: 94640; 99281-25

== ENCOUNTER 2018-09-10 20:58 | Emergency (ER) | payer OTHER ==
[2018-09-10 21:22] VITALS: BP 112/64; PULSE 85; TEMP 98.1; BMI 39.1
--- NOTE | 2018-09-10 21:52 | PDOC ---
History of Present Illness - General Chief Complaint: Cold Symptoms Stated Complaint: ASTHMA Time Seen by Provider: 09/10/18 21:23 History Source: Patient - History of Present Illness Timing/Duration: reports: week Past History - Past Medical History Allergies/Adverse Reactions: Allergies Allergy/AdvReac Type Severity Reaction Status Date / Time No Known Allergies Allergy Verified 09/20/17 21:08 Home Medications: Ambulatory Orders Benzonatate [Tessalon Pearls -] 100 mg PO TID #21 capsule 09/10/18 Asthma: Yes Cancer: No Cardiac Disorders: No COPD: No Diabetes: No HTN: No Psychiatric Problems: Yes (DEPRESSION & ANXIETY, Borderline personality disorder , mood disorder) Seizures: No Thyroid Disease: No - Immunization History Immunization Up to Date: Yes - Suicide/Smoking/Psychosocial Hx Smoking Status: No Smoking History: Never smoked Have you smoked in the past 12 months: No Number of Cigarettes Smoked Daily: 0 Information on smoking cessation initiated: No 'Breaking Loose' booklet given: 05/31/15 Hx Alcohol Use: No Drug/Substance Use Hx: No Substance Use Type: None Hx Substance Use Treatment: No Respiratory Specific PMHX - Complaint Specific PMHX Bronchitis: Yes Review of Systems - Review of Systems Constitutional: No: Fever Respiratory: Yes: Cough. No: Shortness of Breath, Wheezing *Physical Exam - Vital Signs Last Vital Signs Temp Pulse Resp BP Pulse Ox 98.1 F 85 20 112/64 98 09/10/18 21:20 09/10/18 21:20 09/10/18 21:20 09/10/18 21:20 09/10/18 21:20 - Physical Exam General Appearance: Yes: Appropriately Dressed. No: Apparent Distress HEENT: positive: Normal ENT Inspection, Normal Voice. negative: Scleral Icterus (R), Scleral Icterus (L) Neck: positive: Supple. negative: Lymphadenopathy (R), Lymphadenopathy (L) Respiratory/Chest: positive: Lungs Clear, Normal Breath Sounds. negative: Respiratory Distress, Wheezing Cardiovascular: positive: Regular Rate, S1, S2 Integumentary: positive: Dry, Warm Neurologic: positive: Fully Oriented, Alert, Normal Mood/Affect Moderate Sedation - Procedure Monitoring Vital Signs: Procedure Monitoring Vital Signs Temperature 98.1 F 09/10/18 21:20 Pulse Rate 85 09/10/18 21:20 Respiratory Rate 20 09/10/18 21:20 Blood Pressure 112/64 09/10/18 21:20 O2 Sat by Pulse Oximetry (%) 98 09/10/18 21:20 ED Treatment Course - RADIOLOGY Radiology Studies Ordered: Category Date Time Status CHEST PA & LAT [RAD] Stat Radiology 09/10/18 21:49 Ordered Medical Decision Making - Medical Decision Making 09/10/18 21:49 32-year-old female, history of asthma, no admissions or intubations, uses pump and nebulizer machine at home, PNA, here with cough with pleuritic chest pain for 1 week. States she was seen in urgent care last week and given prednisone taper and a course of Z-Pack. No x-ray done. Here because symptoms continue. No sob, wheezing, f/c. No tob hx See exam R/o PNA Stable w/ clear chest/lungs -CXR 09/10/18 22:13 CXR neg. Dc w/ supportive care. PMD f/u *DC/Admit/Observation/Transfer Diagnosis at time of Disposition: Cough - Discharge Dispostion Disposition: HOME Condition at time of disposition: Good - Prescriptions Prescriptions: Benzonatate [Tessalon Pearls -] 100 mg PO TID #21 capsule - Referrals - Patient Instructions Additional Instructions: The cause of your symptoms is most likely viral. Your CXR was negative Continue fluids and take Tessalon Perles for cough ass directed. Continue your asthma medications as needed. Please follow-up with your PMD - Post Discharge Activity
== END 2018-09-10 22:22 | disposition home or self-care (01) ==
LOC: JERFT 20:58
DX: R05 Cough (principal); J45.909 Unspecified asthma, uncomplicated; Z86.59 Personal history of other mental and behavioral disorders
CPT/HCPCS: 71046-TC-FY; 99281-25

== ENCOUNTER 2018-12-19 22:02 | Emergency (ER) | payer OTHER ==
[2018-12-19 22:13] VITALS: BP 110/69; PULSE 85; TEMP 98; BMI 41.1
[2018-12-19] MEDS ORDERED: DEXAMETHASONE LIQUID 0.5 MG/5 ML 240 ML BULK BOTTLE PO ONE (22:26)
[2018-12-19] MEDS ORDERED: DEXAMETHASONE SOD PHOSPHATE 4 MG/1 ML VIAL ONE (22:28)
[2018-12-19] MEDS ORDERED: ALBUTEROL SO4 2.5/IPRATROPIUM 0.5 INH SOL 3 ML VIAL.NEB. NEB ONE (22:28)
[2018-12-19] MEDS: ALBUTEROL SO4 2.5/IPRATROPIUM 0.5 INH SOL 3 ML VIAL.NEB. NEB SCH ×2 (22:36→22:52)
--- NOTE | 2018-12-19 22:49 | PDOC ---
History of Present Illness - General Chief Complaint: Cold Symptoms Stated Complaint: ASTHMA Time Seen by Provider: 12/19/18 22:24 - History of Present Illness Initial Comments: 12/19/18 22:44 33-year-old female with a past medical history significant for bipolar and asthma presents for exacerbation of asthma over the last 2 days. Past History - Past Medical History Allergies/Adverse Reactions: Allergies Allergy/AdvReac Type Severity Reaction Status Date / Time No Known Allergies Allergy Verified 12/19/18 22:11 Home Medications: Ambulatory Orders Albuterol Sulfate Inhaler - [Ventolin Hfa Inhaler -] 1 - 2 inh PO QID 12/19/18 Asthma: Yes Cancer: No Cardiac Disorders: No COPD: No Diabetes: No HTN: No Psychiatric Problems: Yes (DEPRESSION & ANXIETY, Borderline personality disorder , mood disorder) Seizures: No Thyroid Disease: No - Immunization History Immunization Up to Date: Yes - Suicide/Smoking/Psychosocial Hx Smoking Status: No Smoking History: Never smoked Have you smoked in the past 12 months: No Number of Cigarettes Smoked Daily: 0 'Breaking Loose' booklet given: 05/31/15 Hx Alcohol Use: No Drug/Substance Use Hx: No Substance Use Type: None Hx Substance Use Treatment: No Review of Systems - Review of Systems Respiratory: Yes: Shortness of Breath, Wheezing *Physical Exam - Vital Signs Last Vital Signs Temp Pulse Resp BP Pulse Ox 98 F 85 22 H 110/69 99 12/19/18 22:11 12/19/18 22:11 12/19/18 22:11 12/19/18 22:11 12/19/18 22:11 - Physical Exam Comments: 12/19/18 22:45 HEAD: NC/AT EYES: Conjuntiva clear Ears: Canals and TM's normal NOSE: No d/c THROAT: Moist mucous membrances, oral pharanx clear, uvula midline NECK: Supple without adenopathy CARDIAC: S1 S2 LUNGS: CTA Full and Equal breath sounds ABDOMEN: Soft NT ND MS: Full ROM in all joints without edema NEUROLOGIC: No gross sensory or motor deficits, NVID SKIN: Normal color and temperature no lesions or rashes ED Treatment Course - Medications Given in the ED: ED Medications Discontinued Medications Generic Name Dose Route Start Last Admin Trade Name Freq PRN Reason Stop Dose Admin Dexamethasone 10 mg 12/19/18 22:26 12/19/18 22:35 Decadron Liquid - PO 12/19/18 22:27 1 ml ONCE ONE Administration Medical Decision Making - Medical Decision Making 12/19/18 22:45 Patient has a benign exam without wheezing however she feels she can benefit from a DuoNeb treatment. I've given her Decadron and DuoNeb and I will reevaluate her after the first DuoNeb treatment. She is not wheezing she has full equal breath sounds. 12/19/18 22:49 Pt feeling better after 1 duo neb and decadron *DC/Admit/Observation/Transfer Diagnosis at time of Disposition: Asthma exacerbation - Discharge Dispostion Disposition: HOME Condition at time of disposition: Stable Decision to Admit order: No - Referrals Referrals: Ochoa Albert MD, MD [Staff Physician] - - Patient Instructions Printed Discharge Instructions: Asthma -- Adult, DI for Asthma -- Adult Additional Instructions: Return to the emergency room for worsening symptoms. Please follow-up with pulmonology for further evaluation and treatment options continue with your home medication as scheduled. Follow-up with pulmonology in one to 2 days. - Post Discharge Activity
== END 2018-12-19 22:55 | disposition home or self-care (01) ==
LOC: JERFT 22:02
PROC: 3E0F7GC Introduction of Other Therapeutic Substance into Respiratory Tract, Via Natural or Artificial Opening (ICD-10-PCS; principal; 2018-12-19)
DX: J45.901 Unspecified asthma with (acute) exacerbation (principal); F31.9 Bipolar disorder, unspecified; F39 Unspecified mood [affective] disorder; F60.3 Borderline personality disorder
CPT/HCPCS: 94640; 99281-25

== ENCOUNTER 2019-03-13 10:10 | Emergency (ER) | payer OTHER ==
[2019-03-13 10:17] VITALS: BP 94/66; PULSE 86; TEMP 97.7; BMI 40.6
[2019-03-13] MEDS ORDERED: IBUPROFEN 400 MG TABLET (FP) PO ONE ×2 (10:47→10:58)
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
== END 2019-03-13 11:13 | disposition home or self-care (01) ==
LOC: JERFT 10:10
DX: M54.2 Cervicalgia (principal); M54.6 Pain in thoracic spine; M54.5 Low back pain; V43.52XA Car driver injured in collision with other type car in traffic accident, initial encounter; Y92.414 Local residential or business street as the place of occurrence of the external cause; Y93.89 Activity, other specified; Y99.8 Other external cause status; J45.909 Unspecified asthma, uncomplicated; F60.3 Borderline personality disorder
CPT/HCPCS: 99281-25

== ENCOUNTER 2019-06-11 03:05 | Emergency (ER) | payer OTHER ==
[2019-06-11 04:04] VITALS: TEMP 98.1; BMI 34.7
--- NOTE | 2019-06-11 04:29 | PDOC ---
History of Present Illness - General Chief Complaint: Cold Symptoms Stated Complaint: CHEST CONGESTION Time Seen by Provider: 06/11/19 04:14 Past History - Past Medical History Allergies/Adverse Reactions: Allergies Allergy/AdvReac Type Severity Reaction Status Date / Time No Known Allergies Allergy Verified 06/11/19 04:04 Home Medications: Ambulatory Orders Albuterol Sulfate Inhaler - [Ventolin Hfa Inhaler -] 1 - 2 inh PO QID 12/19/18 Budesonide/Formeterol Fumarate [SYMBICORT 160/4.5mcg -] 1 inh PO DAILY #1 cannister 12/19/18 Cyclobenzaprine HCl [Flexeril 10 mg] 10 mg PO TID PRN #21 tablet 03/13/19 Azithromycin [Zithromax Tri-Phillip (3 DAYS) -] 500 mg PO DAILY #3 tablet 06/11/19 Asthma: Yes Cancer: No Cardiac Disorders: No COPD: No Diabetes: No HTN: No Psychiatric Problems: Yes (DEPRESSION & ANXIETY, Borderline personality disorder , mood disorder) Seizures: No Thyroid Disease: No - Immunization History Immunization Up to Date: Yes - Psycho Social/Smoking Cessation Hx Smoking Status: No Smoking History: Current every day smoker Have you smoked in the past 12 months: Yes Number of Cigarettes Smoked Daily: 10 Information on smoking cessation initiated: No 'Breaking Loose' booklet given: 05/31/15 Hx Alcohol Use: Yes Drug/Substance Use Hx: No Substance Use Type: None Hx Substance Use Treatment: No *Physical Exam - Vital Signs Last Vital Signs Temp Pulse Resp BP Pulse Ox 98.1 F 98 H 17 104/66 98 06/11/19 03:05 06/11/19 03:05 06/11/19 03:05 06/11/19 03:05 06/11/19 03:05 Medical Decision Making - Medical Decision Making 06/11/19 04:41 Pt states that she has a cough and fever. Flu like symptoms. Her son is also ill. 06/11/19 04:44 Pt has a hx of asthma Discharge - Discharge Information Problems reviewed: Yes Clinical Impression/Diagnosis: Cough, Bronchitis Condition: Fair - Additional Discharge Information Prescriptions: Azithromycin [Zithromax Tri-Phillip (3 DAYS) -] 500 mg PO DAILY #3 tablet - Follow up/Referral Referrals: Arnol Iniguez MD [Primary Care Provider] - - Patient Discharge Instructions Patient Printed Discharge Instructions: DI for Atypical Pneumonia - Post Discharge Activity
[2019-06-11] MEDS ORDERED: DEXAMETHASONE LIQUID 0.5 MG/5 ML PO ONE (04:46)
[2019-06-11] MEDS ORDERED: AZITHROMYCIN 500 MG TABLET PO ONE (04:46)
[2019-06-11] MEDS ORDERED: AZITHROMYCIN 250 MG TABLET ONE (04:56)
[2019-06-11] MEDS ORDERED: DEXAMETHASONE SOD PHOSPHATE 10 MG/1 ML VIAL ONE ×2 (04:56→05:17)
[2019-06-11 05:56] VITALS: BP 102/70; PULSE 88
== END 2019-06-11 05:57 | disposition home or self-care (01) ==
LOC: JER 03:05
DX: J40 Bronchitis, not specified as acute or chronic (principal); F41.9 Anxiety disorder, unspecified; F32.9 Major depressive disorder, single episode, unspecified; F39 Unspecified mood [affective] disorder; F60.3 Borderline personality disorder; Z87.09 Personal history of other diseases of the respiratory system; F17.210 Nicotine dependence, cigarettes, uncomplicated
CPT/HCPCS: 84703; 87804; 99282-25

== ENCOUNTER 2019-06-15 19:45 | Emergency (ER) | payer OTHER ==
[2019-06-15 19:52] VITALS: BP 121/79; PULSE 113; TEMP 98.1; BMI 30.6
--- NOTE | 2019-06-15 19:53 | PDOC ---
Rapid Medical Evaluation Time Seen by Provider: 06/15/19 19:49 Medical Evaluation: Allergies Allergy/AdvReac Type Severity Reaction Status Date / Time No Known Allergies Allergy Verified 06/11/19 04:04 06/15/19 19:50 Pt c/o: nasal congestion, cough, hx asthma, on prednisone and using inhaler without improvement Pt on brief exam: nasal congestion, thick beige-clear nasal mucus, vss, lcta Pt ordered for: cxr Pt to proceed to the ED Discharge Disposition - Diagnosis Cough, Chest tightness - Discharge Dispostion Disposition: HOME Condition at time of disposition: Stable - Prescriptions Prescriptions: Benzonatate [Tessalon Pearls -] 100 mg PO TID #21 capsule Prednisone [Deltasone] 20 mg PO ASDIR #11 tablet - Referrals Referrals: Arnol Iniguez MD [Primary Care Provider] - - Patient Instructions Printed Discharge Instructions: DI for Viral Upper Respiratory Infection -- Adult Additional Instructions: Take medications as directed If symptoms worsen return to the ED - Post Discharge Activity
--- NOTE | 2019-06-15 19:59 | PDOC ---
History of Present Illness - General Chief Complaint: Cold Symptoms Stated Complaint: COUGH Time Seen by Provider: 06/15/19 19:49 History Source: Patient - History of Present Illness Timing/Duration: reports: other Associated Symptoms: reports: cough. denies: fever/chills, shortness of breath , wheezing Past History - Past Medical History Allergies/Adverse Reactions: Allergies Allergy/AdvReac Type Severity Reaction Status Date / Time No Known Allergies Allergy Verified 06/15/19 20:06 Home Medications: Ambulatory Orders Albuterol Sulfate Inhaler - [Ventolin Hfa Inhaler -] 1 - 2 inh PO QID 12/19/18 Budesonide/Formeterol Fumarate [SYMBICORT 160/4.5mcg -] 1 inh PO DAILY #1 cannister 12/19/18 Cyclobenzaprine HCl [Flexeril 10 mg] 10 mg PO TID PRN #21 tablet 03/13/19 Benzonatate [Tessalon Pearls -] 100 mg PO TID #21 capsule 06/15/19 Prednisone [Deltasone] 20 mg PO ASDIR #11 tablet 06/15/19 Asthma: Yes Cancer: No Cardiac Disorders: No COPD: No Diabetes: No HTN: No Psychiatric Problems: Yes (DEPRESSION & ANXIETY, Borderline personality disorder , mood disorder) Seizures: No Thyroid Disease: No - Immunization History TDAP Vaccination: Yes Immunization Up to Date: Yes - Psycho Social/Smoking Cessation Hx Smoking Status: No Smoking History: Current every day smoker Have you smoked in the past 12 months: Yes Number of Cigarettes Smoked Daily: 5 Information on smoking cessation initiated: No 'Breaking Loose' booklet given: 05/31/15 Hx Alcohol Use: Yes Drug/Substance Use Hx: No Substance Use Type: None Hx Substance Use Treatment: No Respiratory Specific PMHX - Complaint Specific PMHX Hx Bronchitis: Yes Review of Systems - Review of Systems Constitutional: No: Chills, Fever HEENTM: No: Ear Pain, Throat Pain Respiratory: Yes: Cough. No: Shortness of Breath, Wheezing, Hemoptysis Cardiac (ROS): Yes: Chest Tightness *Physical Exam - Vital Signs Last Vital Signs Temp Pulse Resp BP Pulse Ox 98.1 F 113 H 19 121/79 96 06/15/19 19:48 06/15/19 19:48 06/15/19 19:48 06/15/19 19:48 06/15/19 19:48 - Physical Exam General Appearance: Yes: Appropriately Dressed. No: Apparent Distress HEENT: positive: Normal ENT Inspection, Normal Voice, Pharynx Normal. negative : Scleral Icterus (R), Scleral Icterus (L) Neck: positive: Supple. negative: Lymphadenopathy (R), Lymphadenopathy (L) Respiratory/Chest: positive: Lungs Clear, Normal Breath Sounds. negative: Respiratory Distress Cardiovascular: positive: S1, S2, Tachycardia Integumentary: positive: Dry, Warm Neurologic: positive: Fully Oriented, Alert, Normal Mood/Affect Medical Decision Making - Medical Decision Making 06/15/19 19:58 33 yo F, depression, anxiety, borderline PD, asthma, no recent admissions and no intubations, ?PNA remotely, smoker, here w/ dry cough w/ congestion and chest tightness. Seen in ED for same 5 days ago ad dx w/ bronchitis. Completed zpack today. States she saw her PMD after ER visit and given short pred burst which she also already complected. States her chest continues to feel " a little " tight that has not improved w/ her asthma meds at home. No wheezing, SOB, f/c. See exam Asthma flare in setting of URI Completed zpack and pred burst w/ continued tightness Tachy to 113 at triage (took nebs prior to arrivals), in NAD w/ clear chest/ lungs CXR pending 06/15/19 20:21 CXR negative. Rpt HR 86. Pt offered nebs, ? mag and further obs in ER but declined. States she would rather go home with meds and follow-up with her doctor. Smoking cessation strongly encouraged 06/15/19 20:23 Discharge - Discharge Information Problems reviewed: Yes Clinical Impression/Diagnosis: Cough, Chest tightness Condition: Stable Disposition: HOME - Additional Discharge Information Prescriptions: Benzonatate [Tessalon Pearls -] 100 mg PO TID #21 capsule Prednisone [Deltasone] 20 mg PO ASDIR #11 tablet - Follow up/Referral - Patient Discharge Instructions Patient Printed Discharge Instructions: DI for Viral Upper Respiratory Infection -- Adult Additional Instructions: Take medications as directed If symptoms worsen return to the ED - Post Discharge Activity
== END 2019-06-15 20:40 | disposition home or self-care (01) ==
LOC: JERFT 19:45
DX: J06.9 Acute upper respiratory infection, unspecified (principal); B97.89 Other viral agents as the cause of diseases classified elsewhere; J45.909 Unspecified asthma, uncomplicated; Z86.59 Personal history of other mental and behavioral disorders; R31.9 Hematuria, unspecified; F41.8 Other specified anxiety disorders; F31.9 Bipolar disorder, unspecified; F60.3 Borderline personality disorder; F39 Unspecified mood [affective] disorder; F17.210 Nicotine dependence, cigarettes, uncomplicated
CPT/HCPCS: 71046-TC-FY; 99281-25

== ENCOUNTER 2019-09-12 08:51 | Emergency (ER) | payer OTHER ==
[2019-09-12 09:05] VITALS: BP 102/67; TEMP 99; BMI 34.6
[2019-09-12] MEDS ORDERED: predniSONE 20 MG TABLET (UD) PO ONE (09:16)
[2019-09-12] MEDS ORDERED: predniSONE 20 MG TABLET (UD) ONE (09:18)
[2019-09-12] MEDS ORDERED: ALBUTEROL SO4 2.5/IPRATROPIUM 0.5 INH SOL 3 ML VIAL.NEB. NEB ONE (09:19)
[2019-09-12] MEDS: ALBUTEROL SO4 2.5/IPRATROPIUM 0.5 INH SOL 3 ML VIAL.NEB. NEB SCH ×4 (09:19→10:17)
--- NOTE | 2019-09-12 09:29 | PDOC ---
History of Present Illness - General Chief Complaint: Cold Symptoms Stated Complaint: DIFFICULTY BREATHING Time Seen by Provider: 09/12/19 09:09 History Source: Patient - History of Present Illness Timing/Duration: reports: yesterday Associated Symptoms: reports: fever/chills, shortness of breath Past History - Past Medical History Allergies/Adverse Reactions: Allergies Allergy/AdvReac Type Severity Reaction Status Date / Time No Known Allergies Allergy Verified 09/12/19 09:00 Home Medications: Ambulatory Orders Albuterol Sulfate Inhaler - [Ventolin Hfa Inhaler -] 1 - 2 inh PO QID 12/19/18 Budesonide/Formeterol Fumarate [SYMBICORT 160/4.5mcg -] 1 inh PO DAILY #1 cannister 12/19/18 Cyclobenzaprine HCl [Flexeril 10 mg] 10 mg PO TID PRN #21 tablet 03/13/19 Benzonatate [Tessalon Pearls -] 100 mg PO TID #21 capsule 06/15/19 predniSONE [Deltasone] 20 mg PO ASDIR #11 tablet 06/15/19 Oseltamivir Phosphate [Tamiflu] 75 mg PO BID #10 capsule 09/12/19 predniSONE [Deltasone -] 40 mg PO DAILY #8 tablet 09/12/19 Asthma: Yes Cancer: No Cardiac Disorders: No COPD: No Diabetes: No HTN: No Psychiatric Problems: Yes (DEPRESSION & ANXIETY, Borderline personality disorder , mood disorder) Seizures: No Thyroid Disease: No - Immunization History TDAP Vaccination: Yes Immunization Up to Date: Yes - Psycho Social/Smoking Cessation Hx Smoking Status: No Smoking History: Current every day smoker Have you smoked in the past 12 months: Yes Number of Cigarettes Smoked Daily: 20 Information on smoking cessation initiated: Yes 'Breaking Loose' booklet given: 05/31/15 Hx Alcohol Use: No Drug/Substance Use Hx: No Substance Use Type: None Hx Substance Use Treatment: No Respiratory Specific PMHX - Complaint Specific PMHX Hx Bronchitis: Yes Review of Systems - Review of Systems Constitutional: Yes: Chills, Fever, Malaise Respiratory: Yes: Shortness of Breath, Wheezing. No: Cough Cardiac (ROS): No: Chest Tightness *Physical Exam - Vital Signs Last Vital Signs Temp Pulse Resp BP Pulse Ox 99 F 117 H 20 102/67 09/12/19 09:01 09/12/19 09:01 09/12/19 09:01 09/12/19 09:01 - Physical Exam 09/12/19 09:28 alejandra ill General Appearance: Yes: Appropriately Dressed HEENT: positive: Normal ENT Inspection, Normal Voice, TMs Normal, Pharynx Normal. negative: Scleral Icterus (R), Scleral Icterus (L) Neck: positive: Supple. negative: Lymphadenopathy (R), Lymphadenopathy (L) Respiratory/Chest: positive: Lungs Clear, Normal Breath Sounds. negative: Respiratory Distress, Wheezing Cardiovascular: positive: Regular Rate, S1, S2 Integumentary: positive: Dry, Warm Neurologic: positive: Fully Oriented, Alert, Normal Mood/Affect ED Treatment Course - Medications Given in the ED: ED Medications Discontinued Medications Generic Name Dose Route Start Last Admin Trade Name Natalya PRN Reason Stop Dose Admin Prednisone 60 mg 09/12/19 09:16 09/12/19 09:19 Deltasone - PO 09/12/19 09:17 60 mg ONCE ONE Administration Medical Decision Making - Medical Decision Making 09/12/19 09:25 33 yo F, h/o asthma, no admission or intubations, here w/ body aches, malaise, subj fevers and chills x 2 days. Also c/o sob c/w her asthma. Using nebs at home w/ no relief. Son dx with the flu see exam Asthma flare in setting of viral illness, possibly flu given + sick contact Tachy to 117 (nebs CAUL PULLER), clear lungs -nebs -pred -reassess -will m/l dc w/ tamiflu for empiric tx 09/12/19 09:55 Pt reports feeling better with meds. Will dc with Pred burst, Tamiflu and supportive treatment. To return as needed Discharge - Discharge Information Problems reviewed: Yes Clinical Impression/Diagnosis: Viral syndrome Asthma Qualifiers: Asthma severity: mild Asthma persistence: unspecified Asthma complication type : with acute exacerbation Qualified Code(s): J45.901 - Unspecified asthma with ( acute) exacerbation Condition: Improved Disposition: HOME - Additional Discharge Information Prescriptions: Oseltamivir Phosphate [Tamiflu] 75 mg PO BID #10 capsule predniSONE [Deltasone -] 40 mg PO DAILY #8 tablet - Follow up/Referral - Patient Discharge Instructions Patient Printed Discharge Instructions: Influenza, Asthma -- Adult - Post Discharge Activity Work/Back to School Note: Back to Work
[2019-09-12 10:14] VITALS: PULSE 106
== END 2019-09-12 10:17 | disposition home or self-care (01) ==
LOC: JERFT 08:51
DX: B34.9 Viral infection, unspecified (principal); J45.909 Unspecified asthma, uncomplicated; F17.210 Nicotine dependence, cigarettes, uncomplicated; F41.8 Other specified anxiety disorders
CPT/HCPCS: 99282-25

== ENCOUNTER 2021-11-17 09:23 | Emergency (ER) | payer OTHER ==
[2021-11-17 09:40] VITALS: BP 119/74; PULSE 90; TEMP 98.1; BMI 31.6
[2021-11-17] MEDS ORDERED: ACETAMINOPHEN 500 MG TABLET (FP) PO ONE (10:41)
[2021-11-17] MEDS ORDERED: ACETAMINOPHEN 500 MG TABLET (FP) ONE (10:44)
[2021-11-17 11:43] LABS: PH,URINE 6.5 (5.0-8.0); URINE APPEARANCE CLEAR; URINE BILIRUBIN NEGATIVE (NEGATIVE); URINE COLOR YELLOW; URINE GLUCOSE (UA) NEGATIVE (NEGATIVE); URINE KETONE TRACE (NEGATIVE); URINE LEUK ESTERASE NEGATIVE (NEGATIVE); URINE NITRITE NEGATIVE (NEGATIVE); URINE PROTEIN NEGATIVE (NEGATIVE)
== END 2021-11-17 12:07 | disposition home or self-care (01) ==
LOC: JER 09:23
DX: N76.0 Acute vaginitis (principal)
CPT/HCPCS: 36415; 81003; 84703; 87070; 87077; 87086; 87205; 87491; 87591; 99283-25

== ENCOUNTER 2022-08-22 16:54 | Emergency (ER) | payer OTHER ==
[2022-08-22 17:00] VITALS: BP 116/81; PULSE 96; RESP 18; TEMP 98.4; BMI 33.3
== END 2022-08-22 18:50 | disposition home or self-care (01) ==
LOC: JERFT 16:54 → JER 16:54 → JERFT 18:50
DX: Z76.0 Encounter for issue of repeat prescription (principal)
CPT/HCPCS: 99281-25